=== PATIENT | female | born 1990 | race Caucasian/White ===

== ENCOUNTER 2017-05-15 11:55 | Observation (INO) | payer OTHER ==
[~2017-05-15] VITALS: Ht 154.9 cm; Wt 65.8 kg
[2017-05-15] MEDS ORDERED: FERR-89 PO (15:19)
[2017-05-15] MEDS ORDERED: PREN1TAB80 PO (18:38)
[2017-05-15] MEDS ORDERED: CALC-1038 PO (18:39)
[2017-05-15] MEDS ORDERED: LEVO50 PO (18:39)
[2017-05-15 18:45] VITALS: BP 112/77
== END 2017-05-15 20:37 | disposition home or self-care (01) ==
LOC: 4S 11:55
PROVIDERS: ADMIT Obstetrics & Gynecology; ATTEND Obstetrics & Gynecology
DX: O42.92 Full-term premature rupture of membranes, unspecified as to length of time between rupture and onset of labor (principal); O36.8130 Decreased fetal movements, third trimester, not applicable or unspecified; Z3A.39 39 weeks gestation of pregnancy
CPT/HCPCS: 36415; 59025; 89060; G0378

== ENCOUNTER 2017-05-16 04:04 | Inpatient (IN) | payer OTHER ==
[~2017-05-16] VITALS: Ht 152.4 cm; Wt 64.0 kg
[~2017-05-16 04:04] MED LIST: CALC-1038 PO; FERR-89 PO; LEVO50 PO; PREN1TAB80 PO
[2017-05-16 04:12] VITALS: BP 104/73
[2017-05-16] MEDS ORDERED: RINGERS SOLUTION,LACTATED 1,000 ML IV ONE (04:37)
[2017-05-16] MEDS ORDERED: OXYTOCIN 30 UNITS/LACT RINGERS 500 ML IV PRN (04:43)
[2017-05-16] MEDS ORDERED: METOCLOPRAMIDE HCL 5 MG/ML 2 ML VIAL IVP PRN (04:45)
[2017-05-16] MEDS ORDERED: CITRIC ACID/SODIUM CITRATE 30 ML SOLUTION UDCUP PO PRN (04:45)
[2017-05-16] MEDS ORDERED: LIDOCAINE HCL/PF 1% 30 ML VIAL INJ PRN ×2 (04:45→13:45)
[2017-05-16 05:10] LABS: BASOPHILS # (AUTO) 0.03 K/uL (0.00-0.20); BASOPHILS % (AUTO) 0.3 % (0.0-2.0); EOSINOPHILS # (AUTO) 0.04 K/uL (0.00-0.70); EOSINOPHILS % (AUTO) 0.41 % (1.0-6.0); HEMOGLOBIN 12.6 g/dL (12.0-16.0); LYMPHOCYTES # (AUTO) 1.9 K/uL (1.0-4.8); MEAN CORPUSCULAR HEMOGLOBIN 30.1 pg (26.0-34.0); MEAN CORPUSCULAR HGB CONC 34.1 G/dL (31.0-37.0); MEAN CORPUSCULAR VOLUME 88 fL (80-100); MONOCYTES # (AUTO) 0.7 K/uL (0.1-1.0); MONOCYTES % (AUTO) 6.9 % (2.0-9.0); NEUTROPHILS # (AUTO) 7.2 K/uL (1.8-7.7); NEUTROPHILS % (AUTO) 73.4 % (40.0-70.0); PLATELET COUNT (AUTO)-OB 221 K/uL (150-450); RED BLOOD CELL COUNT(AUTO) 4.19 MIL/uL (4.00-5.20); RED CELL DISTRIBUTION WIDTH 13.7 % (11.5-14.5)
[2017-05-16] MEDS: RINGERS SOLUTION,LACTATED 1,000 ML IV SCH ×2 (05:28→07:28)
[2017-05-16] MEDS ORDERED: LIDOCAINE HCL/PF 2% 5 ML VIAL ONE (05:39)
[2017-05-16] MEDS ORDERED: FentaNYL/BUPIV 0.125%/NS/PF 200 ML ED ONE (05:39)
[2017-05-16] MEDS ORDERED: BUPIVACAINE HCL/PF 0.25% 10 ML VIAL ONE (05:39)
[2017-05-16] MEDS ORDERED: FentaNYL/BUPIV 0.125%/NS/PF 200 ML ED PRN (06:28)
[2017-05-16] MEDS ORDERED: PROMETHAZINE HCL 12.5 MG in SODIUM CHLORIDE 0.9% 50 ML IV PRN (06:30)
[2017-05-16] MEDS ORDERED: NALBUPHINE HCL 10 MG/ML VIAL IVP PRN ×2 (06:30)
[2017-05-16] MEDS ORDERED: DiphenhydrAMINE HCL 50 MG/ML VIAL IVP PRN (06:30)
[2017-05-16] MEDS: LEVOTHYROXINE SODIUM 50 MCG TABLET PO SCH (07:21)
[2017-05-16] MEDS ORDERED: OXYTOCIN 30 UNITS/LACT RINGERS 500 ML IV ONE ×2 (09:00→13:31)
[2017-05-16] MEDS ORDERED: INFLUENZA VIRUS VACCINE QVS 2017-18 (3YR+)/PF 60 MCG/0.5 ML SYRINGE IM ONE ×2 (10:00→17:30)
[2017-05-16] MEDS ORDERED: MAGNESIUM HYDROXIDE SUSPENSION 30 ML UDCUP PO PRN (13:45)
[2017-05-16] MEDS ORDERED: LANOLIN 7 GM OINTMENT TP PRN (13:45)
[2017-05-16] MEDS ORDERED: GLYCERIN/WITCH HAZEL LEAF 40 PADS JAR TP PRN (13:45)
[2017-05-16] MEDS ORDERED: BENZOCAINE 20%/MENTHOL 56 GM SPRAY CANISTER TP PRN (13:45)
[2017-05-16] MEDS ORDERED: OxyCODONE HCL/ACETAMINOPHEN 5-325 MG TABLET PO PRN ×2 (13:45)
[2017-05-16] MEDS: IBUPROFEN 800 MG TABLET PO PRN ×2 (15:34→21:23)
[2017-05-16] MEDS ORDERED: PNEUMOCOCCAL VACCINE POLYVALENT 0.5 ML VIAL [PPSV23] IM ONE (19:30)
[2017-05-17 06:21] LABS: BASOPHILS # (AUTO) 0.02 K/uL (0.00-0.20); BASOPHILS % (AUTO) 0.2 % (0.0-2.0); EOSINOPHILS # (AUTO) 0.08 K/uL (0.00-0.70); EOSINOPHILS % (AUTO) 0.58 % (1.0-6.0); HEMATOCRIT 29.1 % (36-46); HEMOGLOBIN 9.8 g/dL (12.0-16.0); LYMPHOCYTES # (AUTO) 2.2 K/uL (1.0-4.8); LYMPHOCYTES % (AUTO) 15.3 % (22.0-44.0); MEAN CORPUSCULAR HEMOGLOBIN 30.2 pg (26.0-34.0); MEAN CORPUSCULAR HGB CONC 33.8 G/dL (31.0-37.0); MEAN CORPUSCULAR VOLUME 89 fL (80-100); MONOCYTES # (AUTO) 1.2 K/uL (0.1-1.0); MONOCYTES % (AUTO) 8.3 % (2.0-9.0); NEUTROPHILS # (AUTO) 10.8 K/uL (1.8-7.7); NEUTROPHILS % (AUTO) 75.7 % (40.0-70.0); PLATELET COUNT (AUTO)-OB 179 K/uL (150-450); RED BLOOD CELL COUNT(AUTO) 3.26 MIL/uL (4.00-5.20); RED CELL DISTRIBUTION WIDTH 13.7 % (11.5-14.5)
[2017-05-17] MEDS: LEVOTHYROXINE SODIUM 50 MCG TABLET PO SCH (06:33)
[2017-05-17] MEDS: IBUPROFEN 800 MG TABLET PO PRN (06:41)
[2017-05-17] MEDS ORDERED: IBUP-2071 PO (10:25)
== END 2017-05-17 14:10 | disposition home or self-care (01) | DRG 775 ==
LOC: 4S 04:04 → OBSVTOIN 04:04
PROVIDERS: ADMIT Obstetrics & Gynecology; ATTEND Obstetrics & Gynecology
PROC: 10D07Z6 Extraction of Products of Conception, Vacuum, Via Natural or Artificial Opening (ICD-10-PCS; principal; 2017-05-16)
PROC: 3E0S3BZ Introduction of Anesthetic Agent into Epidural Space, Percutaneous Approach (ICD-10-PCS; 2017-05-16)
PROC: 00HU33Z Insertion of Infusion Device into Spinal Canal, Percutaneous Approach (ICD-10-PCS; 2017-05-16)
DX: O66.5 Attempted application of vacuum extractor and forceps (principal); E03.9 Hypothyroidism, unspecified; O99.284 Endocrine, nutritional and metabolic diseases complicating childbirth; Z3A.39 39 weeks gestation of pregnancy; Z37.0 Single live birth; Z28.21 Immunization not carried out because of patient refusal
CPT/HCPCS: 86850; 86900; 86901; 90471; J2590; J3490; J7120